=== PATIENT | female | born 1995 | race Caucasian/White ===

== ENCOUNTER 2016-05-30 14:06 | Emergency (ER) | payer OTHER ==
[~2016-05-30] VITALS: Wt 53.0 kg
[~2016-05-30 14:06] MED LIST: HYDR-3498 PO; IBUP-1542 PO; NAPR-260 PO
[2016-05-30 16:32] LABS: BASOPHILS % 0.1 % (0.0-2.0); EOSINOPHILS % 0.2 % (0.0-7.0); HEMATOCRIT 37.8 % (37.0-47.0); LYMPHOCYTES # 0.9 10^3/ul (0.8-2.9); LYMPHOCYTES % 7.3 % (15.0-51.0); MEAN CORPUSCULAR HEMOGLOBIN 32.5 pg (29.0-33.0); MEAN CORPUSCULAR HGB CONC 34.4 g/dl (32.0-37.0); MEAN CORPUSCULAR VOLUME 94.4 fl (82.0-101.0); MEAN PLATELET VOLUME 10.2 fl (7.4-10.4); MONOCYTES % 7.4 % (0.0-11.0); NEUTROPHIL # 10.9 10^3/ul (1.6-7.5); PLATELET COUNT 188 10^3/UL (140-440); UNCORRECTED WBC 12.9 10^3/ul (4.8-10.8); WHITE BLOOD COUNT 12.9 10^3/ul (4.8-10.8)
[2016-05-30 16:35] LABS: CONDITION 1
[2016-05-30 16:35] LABS: ADD UMIC NO; URINE BILIRUBIN (Dip) NEGATIVE (NEGATIVE); URINE BLOOD (Dip) NEGATIVE (NEGATIVE); URINE COLOR LT. YELLOW (YELLOW); URINE GLUCOSE (Dip) NEGATIVE (NEGATIVE); URINE KETONES (Dip) NEGATIVE (NEGATIVE); URINE LEUKOCYTE ESTERASE (Dip) NEGATIVE (NEGATIVE); URINE NITRITE (Dip) NEGATIVE (NEGATIVE); URINE TOTAL PROTEIN (Dip) NEGATIVE (NEGATIVE); URINE UROBILINOGEN (Dip) 0.2 E.U./dL (0.1-1.0)
--- NOTE | 2016-05-30 17:00 | RADRPT ---
PROCEDURE: US OB. CLINICAL INDICATION: Vaginal bleeding TECHNIQUE: Transabdominal and transvaginal views of the pelvis are available for review. COMPARISON: No prior studies are available for comparison. FINDINGS: The mean gestational sac diameter is 3.9 cm. Surprise-rump length:3.1 cm heart rate:180 beats per minute Ultrasound estimated gestational age:9 weeks and 3 days. Estimated date of delivery: 12/30/2016. The uterus measures 9.5 x 7.3 x 7.9 cm in size. The right ovary measures 3.4 x 2.2 x 2.5 cm in size . The left ovary measures 2.2 x 1.4 x 1.8 cm in size. Simple right ovarian cysts are seen which may represent a dominant follicles. The largest cyst in the right ovary measures 1.4 x 1.4 x 1.3 cm in size. No ovarian or adnexal mass lesion is seen. There is no free fluid. IMPRESSION: Single live intrauterine with an estimated gestational age of 9 weeks and 3 days. RPTAT: HPNM Physician Kulwant Date Time Electronically viewed and signed by Physician Kulwant on 05/30/2016 17:00 /
--- NOTE | 2016-05-30 17:02 | RADRPT ---
PROCEDURE: US OB. CLINICAL INDICATION: Vaginal bleeding TECHNIQUE: Transabdominal and transvaginal views of the pelvis are available for review. COMPARISON: No prior studies are available for comparison. FINDINGS: The mean gestational sac diameter is 3.9 cm. Hester-rump length: 3.1 cm heart rate: 180 beats per minute Ultrasound estimated gestational age: 9 weeks and 3 days. Estimated date of delivery: 12/30/2016. The uterus measures 9.5 x 7.3 x 7.9 cm in size. The right ovary measures 3.4 x 2.2 x 2.5 cm in size. The left ovary measures 2.2 x 1.4 x 1.8 cm in size. Simple right ovarian cysts are seen which may r epresent a dominant follicles. The largest cyst in the right ovary measures 1.4 x 1.4 x 1.3 cm in si ze. No ovarian or adnexal mass lesion is seen. There is no free fluid. IMPRESSION: Single live intrauterine with an estimated gestational age of 9 weeks and 3 days. RPTAT: HPNM Physician Kulwant Date Time Electronically viewed and signed by Physician Kulwant on 05/30/2016 17:01 /
[2016-05-30] MEDS ORDERED: AZIT250T94 PO (17:30)
[2016-05-30] MEDS ORDERED: ACET500C5 PO (17:30)
[2016-05-30] MEDS ORDERED: METO10TA92 PO (17:30)
--- NOTE | 2016-05-30 17:32 | ERD ---
ER Documentation Chief Complaint Date/Time DATE: 05/30/16 TIME: 17:32 Chief Complaint NAUSEA VOMITING AND EARLY . NO VAG BLEED. HPI Patient is a 20-year-old female, , who presents to the emergency department with numerous concerns. Patient reports new , + urine test. Patient states that she has not seen an OBGYN yet. Patient reports daily nausea and vomiting, worse in the AM. Patient has not taken any prescription medications for her symptoms, however she has occasionally been taking marijuana. LMP= 03/25/16. Patient denies any abdominal pain, pelvic pain , vaginal bleeding or excessive vaginal discharge. Patient is requesting OB ultrasound today. Patient also complaining of headaches and sinus pressure. Patient states that the pain is in frontal and maxillary regions. Patient reports green nasal rhinorrhea. Patient states these symptoms started 4 days ago and have been getting gradually worse. Patient has not taken any pain medications or antipyretics. Patient denies any fever, chills, cough, ear pain, throat pain, body aches. ROS All systems reviewed and are negative except as per history of present illness. Medications Home Meds Active Scripts Azithromycin* (Zithromax*) 250 Mg Tablet, 250 MG PO .ZPACK DIRECTED, #6 TAB TAKE 500 MG (2 TABS) THE FIRST DAY THEN 250 MG (1 TAB) DAYS 2-5 Prov:AVTAR RICHTER PA-C 05/30/16 Metoclopramide* (Reglan*) 10 Mg Tablet, 10 MG PO Q6 Y for NAUSEA AND/OR VOMITING , #10 TAB Prov:AVTAR RICHTER PA-C 05/30/16 Acetaminophen* (Tylophen*) 500 Mg Capsule, 1 CAP PO Q6H Y for PAIN AND OR ELEVATED TEMP, #20 CAP Prov:AVTAR RICHTER PA-C 05/30/16 Naproxen* (Naprosyn*) 500 Mg Tablet, 500 MG PO BID Y for PAIN AND/OR INFLAMMATION, #15 TAB Prov:Siena Antony PA-C 02/02/16 Hydrocodone Bit-Acetaminophen* ([place]*) 5-325 Mg Tab, 1 TAB PO Q6 Y for PAIN, # 7 TAB Prov:MARITZA CUEVAS NP 05/18/15 Ibuprofen* (Motrin*) 600 Mg Tab, 600 MG PO Q6, #14 TAB Prov:MARITZA CUEVAS I. [employer]POSITE SCIENCE TEACHER 05/18/15 Allergies Allergies: Coded Allergies: Penicillins (Verified Allergy, Unknown, 05/30/16) ampicillin (Verified Allergy, Unknown, 05/30/16) PMhx/Soc History of Surgery: No Anesthesia Reaction: No Hx Neurological Disorder: No Hx Respiratory Disorders: No Hx Cardiac Disorders: No Hx Psychiatric Problems: No Hx Miscellaneous Medical Probl: No Hx Alcohol Use: No Hx Substance Use: No Hx Tobacco Use: No Physical Exam Vitals Vital Signs Date Time Temp Pulse Resp B/P Pulse Ox O2 Delivery O2 Flow Rate FiO2 05/30/16 17:39 98.3 72 19 112/64 100 Room Air 05/30/16 14:12 98.2 105 20 119/70 100 Physical Exam GENERAL: Well-developed, well-nourished female. Appears in no acute distress. HEAD: Normocephalic, atraumatic. No deformities or ecchymosis. EYE: Pupils equal, round, and reactive to light. EOMs intact. No conjunctival erythema. No scleral icterus. No eye discharge. ENT: External ear without any masses or tenderness. Auditory canals clear bilaterally. TM visualized bilaterally, non-erythematous, non-bulging. Nasal mucosa pink with no discharge. Oropharynx is pink without any tonsillar erythema or exudates. No uvula deviation. No kissing tonsils. Tender to palpation of frontal and maxillary sinuses bilaterally. Increased sinus pressure noted when bending head down. NECK: Supple. No meningismus. LUNG: Clear to auscultation bilaterally. No rhonchi, wheezing, rales or coarse breath sounds. HEART: Regular rate and rhythm. No murmurs, rubs or gallops. ABDOMEN: No scars, ecchymosis or rashes noted. Soft, nontender, and nondistended. Positive bowel sounds in all four quadrants. No rebound tenderness , no guarding. (-) McBurneys point tenderness. No CVA tenderness. EXTREMITIES: Equal pulses bilaterally. No peripheral clubbing, cyanosis or edema. No unilateral leg swelling. NEUROLOGIC: Alert and oriented to person, place and time. Moving all four extremities. 5/5 strength in all extremities. Normal speech. Steady gait. SKIN: Normal color. Warm and dry. No rashes or lesions. Result Diagram: 05/30/16 1530 Results 24 hrs Laboratory Tests Test 05/30/16 15:30 05/30/16 15:35 Basophils # 0.010^3/ul Basophils % 0.1% Beta HCG, Quantitative 23860.0mIU/ml Eosinophils # 0.010^3/ul Eosinophils % 0.2% Hematocrit 37.8% Hemoglobin 13.0g/dl Lymphocytes # 0.910^3/ul Lymphocytes % 7.3% Mean Corpuscular Hemoglobin 32.5pg Mean Corpuscular Hemoglobin Concent 34.4g/dl Mean Corpuscular Volume 94.4fl Mean Platelet Volume 10.2fl Monocytes # 1.010^3/ul Monocytes % 7.4% Neutrophils # 10.910^3/ul Neutrophils % 85.0% Nucleated Red Blood Cells # 0.010^3/ul Nucleated Red Blood Cells % 0.0/100WBC Platelet Count 91903^3/UL Red Blood Count 4.0010^6/ul Red Cell Distribution Width 13.0% White Blood Count 12.910^3/ul Urine Bilirubin NEGATIVE Urine Clarity CLEAR Urine Color LT. YELLOW Urine Glucose NEGATIVE% Urine Hemoglobin NEGATIVE Urine Ketones NEGATIVE Urine Leukocyte Esterase NEGATIVE Urine Nitrite NEGATIVE Urine Specific Union 1.010 Urine Total Protein NEGATIVE Urine Urobilinogen 0.2 E.U./dL Urine pH 6.5 Procedures/MDM ED COURSE: The patient was stable throughout ED course. I kept the patient and/or family informed of laboratory and diagnostic imaging results throughout the ED course. DIAGNOSTIC IMAGING: Read by radiologist. DIAGNOSTIC IMAGING REPORT Patient: ANN FIGUEROA : 1995 Age: 20 Sex: F MR #: [id number] DOS: 05/30/16 1520 Ordering MD: AVTAR RICHTER PA-C Location: [facility] Room/Bed: PROCEDURE: US OB. CLINICAL INDICATION: Vaginal bleeding TECHNIQUE: Transabdominal and transvaginal views of the pelvis are available for review. COMPARISON: No prior studies are available for comparison. FINDINGS: The mean gestational sac diameter is 3.9 cm. Limestone-rump length: 3.1 cm heart rate: 180 beats per minute Ultrasound estimated gestational age: 9 weeks and 3 days. Estimated date of delivery: 12/30/2016. The uterus measures 9.5 x 7.3 x 7.9 cm in size. The right ovary measures 3.4 x 2.2 x 2.5 cm in size. The left ovary measures 2.2 x 1.4 x 1.8 cm in size. Simple right ovarian cysts are seen which may represent a dominant follicles. The largest cyst in the right ovary measures 1.4 x 1.4 x 1.3 cm in size. No ovarian or adnexal mass lesion is seen. There is no free fluid. IMPRESSION: Single live intrauterine with an estimated gestational age of 9 weeks and 3 days. RPTAT: HPNM Physician Kulwant Date Time Electronically viewed and signed by Phoenix Tate Physician on 05/30/2016 17 :00 / CC: AVTAR RICHTER PA-C MEDICAL DECISION MAKING: This is a 20 year old female, , who presents with nausea, vomiting , rhinorrhea, increased sinus pressure and headaches. Patient denied any vaginal bleeding or excessive vaginal discharge. Patient is requested OB ultrasound. Vital signs were reviewed. Patient was afebrile[place] [address]. Patient was O positive. CBC showed no evidence of severe anemia. WBC count noted to be 12.9. Flu swab was negative. ENT exam did revealed tenderness to palpation of frontal and maxillary sinuses. Patient's elevation in WBC likely due to sinus infection. Urine was negative for acute infection. Low suspicion for UTI or pyelonephritis. Pelvic US showed Single live intrauterine with an estimated gestational age of 9 weeks and 3 days. Given these findings, the patients presentation is most consistent with nausea and vomiting associated to , normal IUP and sinusitis. I have a much lower clinical concern for hyperemesis gravidum, ectopic , ruptured ectopic , molar , subchorionic hematoma, spontaneous , anembyronic . Low suspicion for influenza, acute otitis media, otitis externa, strep pharyngitis, pneumonia, meningitis. Patient provided with copy of blood work and ultrasound findings. I had a discussion with the patient and her boyfriend about marijuana use during . I strongly advised the patient to abstain from marijuana use given her state. PRESCRIPTIONS: Tylenol, Reglan, Z-rossana DISCHARGE: At this time, patient is stable for discharge and outpatient management. OTC supportive measures discussed with patient including adequate hydration, rest. Patient should follow up with her OBGYN or PCP in 1-2 days. OBGYN referral list provided. I have instructed the patient to promptly return to the ER at any time for any new or worsening symptoms including increased pain, nausea, vomiting, continued bleeding, weakness, syncope or fever. The patient and/or family expressed understanding of and agreement with this plan. All questions were answered. Home care instructions were provided. Departure Diagnosis: Primary Impression: Sinusitis Sinusitis location: unspecified location Chronicity: acute Recurrence: not specified as recurrent Qualified Code: J01.90 - Acute sinusitis, recurrence not specified, unspecified location Additional Impressions: Nausea and vomiting Vomiting type: unspecified Vomiting Intractability: unspecified Qualified Code: R11.2 - Nausea and vomiting, intractability of vomiting not specified, unspecified vomiting type Intrauterine Condition: Stable Patient Instructions: , New Dx, Sinusitis, Abx Tx Referrals: [facility] YOU HAVE RECEIVED A MEDICAL SCREENING EXAM AND THE RESULTS INDICATE THAT YOU DO NOT HAVE A CONDITION THAT REQUIRES URGENT TREATMENT IN THE EMERGENCY DEPARTMENT. FURTHER EVALUATION AND TREATMENT OF YOUR CONDITION CAN WAIT UNTIL YOU ARE SEEN IN YOUR DOCTORS OFFICE WITHIN THE NEXT 1-2 DAYS. IT IS YOUR RESPONSIBILITY TO MAKE AN APPOINTMENT FOR FOLOW-UP CARE. IF YOU HAVE A PRIMARY DOCTOR --you should call your primary doctor and schedule an appointment IF YOU DO NOT HAVE A PRIMARY DOCTOR YOU CAN CALL OUR PHYSICIAN REFERRAL HOTLINE AT IF YOU CAN NOT AFFORD TO SEE A PHYSICIAN YOU CAN CHOSE FROM THE FOLLOWING [facility] [address] [facility]. [facility] [address] [facility] [facility] [address] [facility] [address] [facility] [facility] [address] [facility]. [facility]. [address] [facility]. [facility] YOU HAVE RECEIVED A MEDICAL SCREENING EXAM AND THE RESULTS INDICATE THAT YOU DO NOT HAVE A CONDITION THAT REQUIRES URGENT TREATMENT IN THE EMERGENCY DEPARTMENT. FURTHER EVALUATION AND TREATMENT OF YOUR CONDITION CAN WAIT UNTIL YOU ARE SEEN IN YOUR DOCTORS OFFICE WITHIN THE NEXT 1-2 DAYS. IT IS YOUR RESPONSIBILITY TO MAKE AN APPOINTMENT FOR FOLOW-UP CARE. IF YOU HAVE A PRIMARY DOCTOR --you should call your primary doctor and schedule and appointment IF YOU DO NOT HAVE A PRIMARY DOCTOR YOU CAN CALL OUR PHYSICIAN REFERRAL HOTLINE AT . IF YOU CAN NOT AFFORD TO SEE A PHYSICIAN YOU CAN CHOSE FROM THE FOLLOWING [facility] INSTITUTIONS: [facility] [address] [place] [address] [facility] [address] [place] [address] [facility] [address] [place] [address] [place] [address] [facility] [address] [place] [address] OFFICE FAX [facility] [address] [place], [place] [id number] [facility] [address] [place] [address] PÉREZ DONIS [id number] [facility], [address], [facility] [address] [address] [place] [address] [facility] [address] [place] [address] [address] [facility] [id number] - [address]OS[address] MELL[address] [facility] [address] [facility] [address] [facility]. [address], [facility] [id number] [facility] [address] [place] [address] Additional Instructions: Call your primary care doctor TOMORROW for an appointment during the next 1-2 days.See the doctor sooner or return here if your condition worsens before your appointment time. AVTAR RICHTER PA-C May 30, 2016 17:32
[2016-05-30 17:39] VITALS: BP 112/64; PULSE 72; RESP 19; TEMP 98.3
== END 2016-05-30 17:54 | disposition home or self-care (01) ==
LOC: FTE 14:06
DX: O99.511 Diseases of the respiratory system complicating pregnancy, first trimester (principal); J01.90 Acute sinusitis, unspecified; Z3A.09 9 weeks gestation of pregnancy
CPT/HCPCS: 36415; 76801; 76817; 81003; 84702; 85025; 86900; 86901; 87400; Z7502